=== PATIENT | female | born 1955 | race Asian ===

== ENCOUNTER 2023-10-18 18:12 | Inpatient (IN) | payer MEDICARE, MEDICAID ==
[~2023-10-18] VITALS: Ht 147.3 cm; Wt 67.8 kg
[2023-10-18 19:01] LABS: BASOPHILS % (AUTO) 1.1 % (0-1); EOSINOPHILS # (AUTO) 0.3 X10'3 (0-0.9); EOSINOPHILS % (AUTO) 5.9 % (0-6); LYMPHOCYTES # (AUTO) 0.9 X10'3 (1.1-4.8); LYMPHOCYTES % (AUTO) 20.5 % (21-51); MEAN CORPUSCULAR HEMOGLOBIN 20.9 PG (27.0-31.0); MEAN CORPUSCULAR HGB CONC 30.3 g/dL (33.0-36.5); MEAN CORPUSCULAR VOLUME 69.1 FL (78-98); MEAN PLATELET VOLUME 8.1 FL (7.4-10.4); MONOCYTES # (AUTO) 0.3 X10'3 (0-0.9); MONOCYTES % (AUTO) 7.5 % (2-12); NEUTROPHILS # (AUTO) 2.9 X10'3 (1.8-7.7); PLATELET COUNT 183 X10'3 (140-440); RED BLOOD COUNT 2.94 X10'6 (4.20-5.60); RED CELL DISTRIBUTION WIDTH 18.1 % (11.5-14.5); WHITE BLOOD COUNT 4.4 X10'3 (4.5-11.0)
[2023-10-18 19:04] LABS: HEMATOCRIT 20.3 % (35.0-45.0); HEMOGLOBIN 6.1 g/dl (12.0-16.0)
[2023-10-18 19:12] LABS: APTT 24 SECONDS (22-32); PROTHROMBIN TIME 10.6 SECONDS (9.0-12.0)
[2023-10-18 19:14] LABS: ALANINE AMINOTRANSFERASE 16 U/L (12-78); ALBUMIN 3.8 G/DL (3.4-5.0); ALBUMIN/GLOBULIN RATIO 1.2 (1.1-1.5); ALKALINE PHOSPHATASE 62 IU/L (46-116); ANION GAP 9 (8-16); ASPARTATE AMINO TRANSFERASE 35 U/L (10-37); BILIRUBIN,TOTAL 1.7 MG/DL (0.1-1.0); BLOOD UREA NITROGEN 14 MG/DL (7-18); BUN/CREATININE RATIO 12.3 (10.0-20.0); CALCIUM 8.3 MG/DL (8.5-10.1); CHLORIDE 106 MMOL/L (99-107); CREATININE 1.14 MG/DL (0.40-0.90); GLUCOSE 125 MG/DL (70-104); POTASSIUM 3.6 MMOL/L (3.5-5.1); SODIUM 141 MMOL/L (135-145); TOTAL CARBON DIOXIDE 25.7 MMOL/L (24-32); TOTAL PROTEIN 6.9 G/DL (6.4-8.2); eCRCL 31 ML/MIN; eGFR 47 ML/MIN
[2023-10-18] MEDS ORDERED: pantoprazole 40mg IV 80 MG in normal saline 100ml IV soln 100 ML IV ONE (19:45)
[2023-10-18 20:09] LABS: PLATELET ESTIMATE NORMAL
[2023-10-18 20:10] LABS: ANISOCYTOSIS 2+; ELLIPTOCYTES FEW; HYPOCHROMASIA 2+; MICROCYTOSIS 2+; TEAR DROP CELLS 1+
[2023-10-18 20:11] LABS: STOMATOCYTES FEW
[2023-10-18] MEDS ORDERED: magnesium sulf-water 2g/50mL 50 ML IV PRN (20:30)
[2023-10-18] MEDS ORDERED: ondansetron/PF 4mg/2ml inj IV PRN (20:30)
[2023-10-18] MEDS ORDERED: magnesium Cl slow-release 64mg tablet PO PRN (20:30)
[2023-10-18] MEDS ORDERED: mag hydrox/Alum hydrox/simeth 30ml oral suspension PO PRN (20:30)
[2023-10-18] MEDS ORDERED: magnesium hydroxide 30ml (MOM) UD suspension PO PRN (20:30)
[2023-10-18] MEDS ORDERED: potassium Cl 40MEQ/1/2NS 520ml 520 ML IV PRN (20:30)
[2023-10-18] MEDS ORDERED: magnesium sulf-water 4G/100mL 100 ML IV PRN (20:30)
[2023-10-18] MEDS ORDERED: potassium Cl 20 mEq SR tablet PO PRN (20:30)
[2023-10-18] MEDS: pantoprazole 40 MG vial IV ONE (20:52)
[2023-10-18] MEDS: normal saline 1000ml 1,000 ML IV SCH (21:09)
[2023-10-18 21:24] LABS: HEMOGLOBIN A1C 4.6 % (4.5-6.2)
[2023-10-18] MEDS ORDERED: ferrous sulfate ER tablet 140 MG TABLET.ER PO SCH (21:30)
[2023-10-18 21:32] LABS: FERRITIN 453 NG/ML (8-252); THYROID STIMULATING HORMONE 8.28 ulU/ml (0.34-4.50)
[2023-10-18] MEDS ORDERED: FERROUS SULFATE 142 MG TABLET.ER (45mg elemental) PO SCH (21:50)
[2023-10-18 22:15] LABS: % IRON SATURATION 29 % (11-46); IRON 77 UG/DL (49-151); TOTAL IRON BINDING CAPACITY 270 UG/DL (259-388)
[2023-10-18 22:25] VITALS: BP 142/41; PULSE 83; RESP 16; TEMP 98.2; O2SAT 99
[2023-10-18] MEDS ORDERED: LEVO50TA8 PO (22:57)
[2023-10-18] MEDS ORDERED: TRAZ-256 (22:57)
[2023-10-18] MEDS ORDERED: GABA-530 (22:57)
[2023-10-18] MEDS ORDERED: OMEP20CA16 PO (22:57)
[2023-10-18] MEDS ORDERED: IBUP-1986 PO (22:57)
[2023-10-19] VITALS (8 sets, daily range): BP systolic 100–155; BP diastolic 47–63; PULSE 68–90; RESP 14–18; TEMP 97.8–98.3; O2SAT 95–100
[2023-10-19] MEDS: folic acid/vitamin B complex w/vitamin C 0.8mg tablet PO SCH (00:39)
[2023-10-19] MEDS: acetaminophen 325mg tablet PO ONE (02:58)
[2023-10-19] MEDS: acetaminophen 325mg tablet PO PRN (05:47)
[2023-10-19 07:04] LABS: EOSINOPHILS # (AUTO) 0.3 X10'3 (0-0.9); EOSINOPHILS % (AUTO) 8.2 % (0-6); LYMPHOCYTES # (AUTO) 0.9 X10'3 (1.1-4.8); LYMPHOCYTES % (AUTO) 26.4 % (21-51); MEAN CORPUSCULAR HEMOGLOBIN 20.4 PG (27.0-31.0); MEAN CORPUSCULAR HGB CONC 29.4 g/dL (33.0-36.5); MEAN CORPUSCULAR VOLUME 69.3 FL (78-98); MEAN PLATELET VOLUME 8.5 FL (7.4-10.4); MONOCYTES # (AUTO) 0.3 X10'3 (0-0.9); MONOCYTES % (AUTO) 7.4 % (2-12); PLATELET COUNT 148 X10'3 (140-440); RED BLOOD COUNT 2.83 X10'6 (4.20-5.60); RED CELL DISTRIBUTION WIDTH 17.6 % (11.5-14.5); WHITE BLOOD COUNT 3.5 X10'3 (4.5-11.0)
[2023-10-19 07:09] LABS: HEMATOCRIT 19.6 % (35.0-45.0); HEMOGLOBIN 5.8 g/dl (12.0-16.0)
[2023-10-19 07:17] LABS: ALBUMIN 3.2 G/DL (3.4-5.0); ANION GAP 6 (8-16); BLOOD UREA NITROGEN 13 MG/DL (7-18); BUN/CREATININE RATIO 15.5 (10.0-20.0); CALCIUM 7.9 MG/DL (8.5-10.1); CHLORIDE 109 MMOL/L (99-107); CHOL/HDL RATIO 2.6 (0.00-4.99); CHOLESTEROL 107 MG/DL (0-200); CREATININE 0.84 MG/DL (0.40-0.90); FREE T4 (FREE THYROXINE) 0.87 NG/DL (0.73-1.40); GLUCOSE 93 MG/DL (70-104); HDL CHOLESTEROL 41 MG/DL (35-60); LDL CHOLESTEROL 50 MG/DL (50-100); POTASSIUM 3.3 MMOL/L (3.5-5.1); SODIUM 141 MMOL/L (135-145); TRIGLYCERIDES 113 MG/DL (20-135); eCRCL 41 ML/MIN; eGFR 67 ML/MIN
[2023-10-19 07:49] LABS: OCCULT BLOOD STOOL NEGATIVE (Neg)
[2023-10-19] MEDS: docusate sod 100mg capsule PO SCH (08:00)
[2023-10-19] MEDS: K and/or MAG REPLACEMENT MC SCH (08:24)
[2023-10-19] MEDS: potassium Cl 20 mEq SR tablet PO PRN (08:35)
[2023-10-19] MEDS: FERROUS SULFATE 142 MG TABLET.ER (45mg elemental) PO SCH (08:35)
[2023-10-19] MEDS: pantoprazole 40 MG vial IV SCH (08:35)
[2023-10-19] MEDS ORDERED: docusate sod 100mg capsule PO PRN (10:50)
[2023-10-19] MEDS: PEG 3350/Na sulf,bicarb,Cl/KCl oral sol 4 liter bottle PO ONE (13:31)
[2023-10-19 20:06] LABS: BILIRUBIN,URINE NEGATIVE (Neg); CLARITY,URINE CLEAR (Clear); COLOR,URINE YELLOW (Yellow); GLUCOSE, URINE NEGATIVE (Neg); KETONES,URINE NEGATIVE (Neg); LEUKOCYTE ESTERASE ,URINE NEGATIVE (Neg); NITRITES, URINE NEGATIVE (Neg); OCCULT BLOOD,URINE NEGATIVE (Neg); PROTEIN,URINE NEGATIVE (Neg); UROBILINOGEN,URINE 0.2 E.U/dL (0.2-1.0)
[2023-10-19 20:06] LABS: HEMATOCRIT 23.1 % (35.0-45.0); MEAN CORPUSCULAR HEMOGLOBIN 20.9 PG (27.0-31.0); MEAN CORPUSCULAR HGB CONC 30.1 g/dL (33.0-36.5); MEAN CORPUSCULAR VOLUME 69.6 FL (78-98); MEAN PLATELET VOLUME 8.7 FL (7.4-10.4); PLATELET COUNT 180 X10'3 (140-440); RED BLOOD COUNT 3.31 X10'6 (4.20-5.60); RED CELL DISTRIBUTION WIDTH 18.1 % (11.5-14.5); WHITE BLOOD COUNT 4.8 X10'3 (4.5-11.0)
[2023-10-19 20:12] LABS: HEMOGLOBIN 6.9 g/dl (12.0-16.0)
[2023-10-19 20:12] LABS: UA COLLECTION TYPE CLN CATCH MIDSTREAM
[2023-10-20] VITALS (12 sets, daily range): BP systolic 107–158; BP diastolic 44–77; PULSE 74–98; RESP 14–24; TEMP 98–98.3; O2SAT 90–100
[2023-10-20 06:52] LABS: BASOPHILS % (AUTO) 0.9 % (0-1); EOSINOPHILS # (AUTO) 0.2 X10'3 (0-0.9); EOSINOPHILS % (AUTO) 4.3 % (0-6); LYMPHOCYTES # (AUTO) 0.9 X10'3 (1.1-4.8); MEAN CORPUSCULAR HEMOGLOBIN 20.8 PG (27.0-31.0); MEAN CORPUSCULAR HGB CONC 30.2 g/dL (33.0-36.5); MEAN CORPUSCULAR VOLUME 68.6 FL (78-98); MEAN PLATELET VOLUME 7.9 FL (7.4-10.4); MONOCYTES # (AUTO) 0.3 X10'3 (0-0.9); MONOCYTES % (AUTO) 6.2 % (2-12); NEUTROPHILS # (AUTO) 3.1 X10'3 (1.8-7.7); NEUTROPHILS % (AUTO) 69.6 % (42-75); PLATELET COUNT 174 X10'3 (140-440); RED CELL DISTRIBUTION WIDTH 17.6 % (11.5-14.5); WHITE BLOOD COUNT 4.5 X10'3 (4.5-11.0)
[2023-10-20 06:57] LABS: HEMATOCRIT 21.3 % (35.0-45.0); HEMOGLOBIN 6.4 g/dl (12.0-16.0)
[2023-10-20 07:20] LABS: ALANINE AMINOTRANSFERASE 14 U/L (12-78); ALBUMIN 3.8 G/DL (3.4-5.0); ALBUMIN/GLOBULIN RATIO 1.2 (1.1-1.5); ALKALINE PHOSPHATASE 49 IU/L (46-116); ANION GAP 6 (8-16); ASPARTATE AMINO TRANSFERASE 25 U/L (10-37); BILIRUBIN,TOTAL 1.9 MG/DL (0.1-1.0); BLOOD UREA NITROGEN 7 MG/DL (7-18); CALCIUM 8.5 MG/DL (8.5-10.1); CHLORIDE 109 MMOL/L (99-107); CREATININE 0.88 MG/DL (0.40-0.90); GLUCOSE 95 MG/DL (70-104); LACTATE DEHYDROGENASE 265 U/L (81-234); POTASSIUM 3.7 MMOL/L (3.5-5.1); SODIUM 140 MMOL/L (135-145); TOTAL CARBON DIOXIDE 24.7 MMOL/L (24-32); TOTAL PROTEIN 6.9 G/DL (6.4-8.2); eCRCL 40 ML/MIN; eGFR 64 ML/MIN
[2023-10-20 07:41] LABS: ANISOCYTOSIS 1+; MICROCYTOSIS 2+; PLATELET ESTIMATE NORMAL
[2023-10-20 07:42] LABS: ACANTHOCYTES FEW; BURR CELLS FEW; ELLIPTOCYTES FEW; HYPOCHROMASIA 2+; POLYCHROMASIA 1+
[2023-10-20] MEDS ORDERED: LIDOcaine 2% Viscous 15ml cup ONE (10:14)
[2023-10-20] MEDS ORDERED: MIDAZolam 1 MG/ML 5ML VIAL ONE (10:23)
[2023-10-20] MEDS ORDERED: fentaNYL/PF 50MCG/1 ML 2ML syringe ONE (10:23)
[2023-10-20] MEDS: acetaminophen 325mg tablet PO PRN (21:19)
[2023-10-21 06:00] VITALS: BP 132/54; PULSE 89; RESP 18; TEMP 98.5; O2SAT 97
[2023-10-21 06:06] LABS: ALANINE AMINOTRANSFERASE 11 U/L (12-78); ALKALINE PHOSPHATASE 46 IU/L (46-116); ANION GAP 8 (8-16); ASPARTATE AMINO TRANSFERASE 27 U/L (10-37); BILIRUBIN,TOTAL 1.4 MG/DL (0.1-1.0); BLOOD UREA NITROGEN 12 MG/DL (7-18); CALCIUM 8.2 MG/DL (8.5-10.1); CHLORIDE 108 MMOL/L (99-107); GLUCOSE 98 MG/DL (70-104); POTASSIUM 3.4 MMOL/L (3.5-5.1); SODIUM 141 MMOL/L (135-145); TOTAL CARBON DIOXIDE 25.1 MMOL/L (24-32); TOTAL PROTEIN 5.9 G/DL (6.4-8.2); eCRCL 35 ML/MIN; eGFR 55 ML/MIN
[2023-10-21 10:00] VITALS: BP 140/65; PULSE 75; RESP 18; TEMP 98.5; O2SAT 99
[2023-10-21 14:29] LABS: MEAN CORPUSCULAR HEMOGLOBIN 20.8 PG (27-31.2); MEAN CORPUSCULAR HGB CONC 30.1 % (32-36); PLATELET COUNT 150 X10'3 (130-400); RED CELL DISTRIBUTION WIDTH 17.6 % (11-16); WHITE BLOOD COUNT 3.8 X10'3 (4.5-11.0)
[2023-10-21 14:31] LABS: HEMATOCRIT 18.6 % (37.7-47.9); HEMOGLOBIN 5.6 G/DL (11.5-16.0); MM BASOPHILS % (MANUAL) 2 % (0-1); MM EOSINOPHILS % (MANUAL) 2 % (0-6); MM LYMPHOCYTES % (MANUAL) 18 % (21-51); MM METAMYLEOCYTES% (MANUAL) 1 % (0-0); MM MONOCYTES % (MANUAL) 3 % (2-12); MM MYELOCYTES % (MANUAL) 2 % (0-0); MM NEUTROPHILS % (MANUAL) 72 % (42-75); MM NUCLEATED RED BLOOD CELLS 1 /100WBC (0-0); MM TOTAL CELLS COUNTED 100
[2023-10-21 14:32] LABS: MM ANISOCYTOSIS 1+; MM MICROCYTOSIS 1+; MM PLATELET ESTIMATE DECREASED; MM POLYCHROMASIA 1+; MM RBC MORPHOLOGY PERF; MM SPHEROCYTES 1+
[2023-10-22 13:36] LABS: HAPTOGLOBIN <10 mg/dL (37-355)
== END 2023-10-21 14:10 | disposition home or self-care (01) | DRG 808 ==
LOC: ER 18:13 → ED HOLD 20:37 → SUR 3N 22:25
PROVIDERS: ADMIT Internal Medicine Critical Care Medicine; ATTEND Family Medicine
PROC: 0DJ08ZZ Inspection of Upper Intestinal Tract, Via Natural or Artificial Opening Endoscopic (ICD-10-PCS; principal; 2023-10-20)
PROC: 0DBH8ZX Excision of Cecum, Via Natural or Artificial Opening Endoscopic, Diagnostic (ICD-10-PCS; 2023-10-20)
DX: D59.10 Autoimmune hemolytic anemia, unspecified (principal); N17.0 Acute kidney failure with tubular necrosis; E87.6 Hypokalemia; K63.5 Polyp of colon; G62.9 Polyneuropathy, unspecified; E03.9 Hypothyroidism, unspecified; F43.10 Post-traumatic stress disorder, unspecified; K21.9 Gastro-esophageal reflux disease without esophagitis; G89.4 Chronic pain syndrome; Z90.710 Acquired absence of both cervix and uterus
CPT/HCPCS: 36415; 43235; 45380; 80048; 80053; 80061; 81003; 82272; 82607; 82728; 83010; 83036; 83540; 83550; 83615; 83655; 84439; 84443; 84466; 84480; 84484; 85007; 85008; 85025; 85027; 85610; 85651; 85730; 86038; 86200; 86870; 86880; 86885; 86900; 86901; 86902; 86905; 86920; 86922; 87081; 99152; 99153; 99285; A4620; G0378; J2250; J2470; J3010; J7030; J7040